=== PATIENT | female | born 1960 | race Caucasian/White ===

== ENCOUNTER 2016-12-20 03:49 | Observation (INO) | payer BC ==
[~2016-12-20] VITALS: Ht 157.5 cm; Wt 93.0 kg
[2016-12-20 04:46] LABS: RED BLOOD COUNT 4.73 M/UL (4.00-5.10); WHITE BLOOD COUNT 13.5 K/UL (4.5-11.0)
[2016-12-20 05:04] LABS: BUN/CREATININE RATIO 13 (0-10)
[2016-12-20] MEDS ORDERED: PRILOSEC OTC20 MG PO (16:51)
[2016-12-20] MEDS ORDERED: CATAPRES 0.1MG0.1 MG PO (16:52)
[2016-12-20] MEDS ORDERED: VITAMIN D 11000 UNIT PO (16:53)
[2016-12-20] MEDS ORDERED: LOPRESSOR 25 MG25 MG PO (16:53)
[2016-12-20] MEDS ORDERED: LORTAB 5-325 M1 EACH PO (16:53)
--- NOTE | 2016-12-20 23:45 | NUR ---
1935 PATIENT BEGAN SHOWING S/S OF AN ALLERGIC RESPONSE. SHE HAD SWELLING AROUND THE MOUTH AND EYES, NASAL CONJESTION, AND RED BLOTCHY AREAS TO THE FACE. THE PATIENT STATED SHE HAD SEVERAL FOOD ALLERGIES AND WHAT HER MEDICATION ALLERGIES WERE. VITAL SIGNS WERE TAKEN. DR. OLSEN WAS NOTIFIED OF THE CHANGE IN THE PATIENT. ADMINISTERED BENEDRYL 25 MG IM PER TELEPHONE ORDER. FLAGYL WAS DISCONTINUED AND LEVAQUIN IS BEING HELD UNTIL FURTHER INSTRUCTIONS FROM DR. OLSEN.
[2016-12-21 07:21] LABS: HEMOGLOBIN 11.7 gm/dl (12.3-15.3); RED BLOOD COUNT 3.98 M/UL (4.00-5.10); WHITE BLOOD COUNT 9.4 K/UL (4.5-11.0)
[2016-12-21 07:35] LABS: BUN/CREATININE RATIO 20 (0-10)
[2016-12-22] MEDS ORDERED: ZOFRAN4 MG PO (11:47)
[2016-12-22] MEDS ORDERED: BACTRIM DS TAB1 EACH PO (11:48)
[2016-12-22] MEDS ORDERED: FLAGYL250 MG PO (11:49)
== END 2016-12-22 13:18 | disposition home or self-care (01) ==
LOC: ER1 03:49 → ZEROF 06:50 → M/S 06:50
PROVIDERS: Specialist/Technologist Athletic Trainer; ADMIT Surgery
DX: K36 Other appendicitis (principal); I10 Essential (primary) hypertension; D72.829 Elevated white blood cell count, unspecified; E66.9 Obesity, unspecified; Z88.0 Allergy status to penicillin; Z79.2 Long term (current) use of antibiotics; Z79.899 Other long term (current) drug therapy; Z90.49 Acquired absence of other specified parts of digestive tract
CPT/HCPCS: 36415; 80053; 81001; 82150; 83690; 84484; 85025; 87086; 93005; 96361; 96365; 96372; 96375; 96376; 99285; G0378; J1200; J1885; J1956; J2270; J2405; J7030; J7050; Q9962

== ENCOUNTER 2016-12-26 15:20 | Emergency (ER) | payer BC ==
[~2016-12-26 15:20] MED LIST: BACTRIM DS TAB1 EACH PO; CATAPRES 0.1MG0.1 MG PO; FLAGYL250 MG PO; LOPRESSOR 25 MG25 MG PO; LORTAB 5-325 M1 EACH PO; PRILOSEC OTC20 MG PO; VITAMIN D 11000 UNIT PO; ZOFRAN4 MG PO
== END 2016-12-26 18:53 | disposition left against medical advice (07) ==
LOC: ER1 15:20
DX: Z53.21 Procedure and treatment not carried out due to patient leaving prior to being seen by health care provider (principal)
CPT/HCPCS: 81001